=== PATIENT | female | born 1950 | race Two or more races ===

== ENCOUNTER → 2017-10-09 | Outpatient (CLI) | payer OTHER | END | disposition home or self-care (01) | LOC: SONOGRAMA 07:29 | DX: E04.1 Nontoxic single thyroid nodule (principal) ==

== ENCOUNTER 2018-11-03 07:29 | Outpatient (CLI) | payer OTHER | END 2018-11-03 07:30 | disposition home or self-care (01) | LOC: SONOGRAMA 07:29 | DX: E04.2 Nontoxic multinodular goiter (principal) ==